=== PATIENT | female | born 1955 | race Caucasian/White ===

== ENCOUNTER 2018-11-29 17:45 | Emergency (ER) | payer BC ==
[2018-11-29] MEDS ORDERED: Sodium Chloride 0.9% 1000 ML 1,000 ML IV STA (18:44)
[2018-11-29] MEDS ORDERED: Zofran 4 MG/2 ML VIAL IV ONE (18:45)
[2018-11-29] MEDS ORDERED: Zofran 4 MG/2 ML VIAL ONE (18:59)
[2018-11-29] MEDS ORDERED: Sodium Chloride 0.9% 1000 ML 1,000 ML ONE (18:59)
--- NOTE | 2018-11-29 19:09 | ERPHSYRPT ---
- History of Present Illness Time Seen by Provider: 11/29/18 19:05 Historian: patient, family Exam Limitations: no limitations Patient Subjective Stated Complaint: PT states "I have had body aches, chills, nausea, diarrhea and just felt like crap for two to three days." Triage Nursing Assessment: Pt alert and oriented X 3, skin pwd Pt ambulates with an upright steady gait, able to speak in clear full sentences. pt in no apprent respriatory distres.. Physician History: 63 y/o white female presents with 2 day h/o body aches, chills, n/v/d. denies cp and denies soa. pt has not been eating or drinking well. no other individuals with similar sx. no new meds. Timing/Duration: day(s) (2) Activities at Onset: none Quality: aching Abdominal Pain Onset Location: generalized abdomen Pain Radiation: no radiation Severity of Pain-Max: mild Severity of Pain-Current: mild Modifying Factors: Improves With: vomiting Associated Symptoms: diarrhea, fever/chills, loss of appetite, nausea, vomiting , weakness Previous symptoms: no prior history Allergies/Adverse Reactions: No Known Drug Allergies Allergy (Unverified 11/29/18 18:02) Home Medications: Levothyroxine Sodium 150 Mcg [Synthroid 150 Mcg] 150 mcg PO DAILY 11/29/18 [History] Hx Tetanus, Diphtheria Vaccination/Date Given: No Hx Influenza Vaccination/Date Given: No Hx Pneumococcal Vaccination/Date Given: No Immunizations Up to Date: Yes - Review of Systems Constitutional: Chills, Weakness Eyes: No Symptoms Ears, Nose, & Throat: No Symptoms Respiratory: No Symptoms Cardiac: No Symptoms Abdominal/Gastrointestinal: Abdominal Pain, Nausea, Vomiting, Diarrhea Genitourinary Symptoms: No Symptoms Musculoskeletal: Arthralgias, Myalgias Skin: No Symptoms Neurological: No Symptoms Psychological: No Symptoms Endocrine: No Symptoms Hematologic/Lymphatic: No Symptoms Immunological/Allergic: No Symptoms All Other Systems: Reviewed and Negative - Past Medical History Pertinent Past Medical History: Yes Neurological History: No Pertinent History ENT History: No Pertinent History Cardiac History: No Pertinent History Respiratory History: No Pertinent History Endocrine Medical History: Hypothyroidism Musculoskeletal History: No Pertinent History GI Medical History: No Pertinent History History: No Pertinent History Psycho-Social History: Anxiety, Depression Female Reproductive Disorders: No Pertinent History - Past Surgical History Past Surgical History: Yes Neuro Surgical History: No Pertinent History Cardiac: No Pertinent History Respiratory: No Pertinent History Gastrointestinal: No Pertinent History Genitourinary: No Pertinent History Musculoskeletal: No Pertinent History Female Surgical History: No Pertinent History Other Surgical History: gastric bypass. nathaniel - Social History Smoking Status: Never smoker Exposure to second hand smoke: No Drug Use: none Patient Lives Alone: No - Female History Hx Now: No - Nursing Vital Signs Nursing Vital Signs: Initial Vital Signs Temperature 98.9 F 11/29/18 17:57 Pulse Rate 98 H 11/29/18 17:57 Respiratory Rate 22 11/29/18 17:57 Blood Pressure 123/82 11/29/18 17:57 O2 Sat by Pulse Oximetry 95 11/29/18 17:57 Pain Scale Pain Intensity [Anterior/ 2 Posterior Generalized] Pain Intensity 2 - Physical Exam General Appearance: mild distress, alert, anxiety Eye Exam: PERRL/EOMI Ears, Nose, Throat Exam: normal ENT inspection, moist mucous membranes Neck Exam: normal inspection, non-tender, supple, full range of motion Respiratory Exam: normal breath sounds, lungs clear, airway intact, No chest tenderness, No respiratory distress, No accessory muscle use, No rhonchi, No wheezing, No stridor Cardiovascular Exam: regular rate/rhythm, normal heart sounds Gastrointestinal/Abdomen Exam: soft, normal bowel sounds, No tenderness, No guarding, No rebound Rectal Exam: deferred Back Exam: normal inspection, normal range of motion, No CVA tenderness, No vertebral tenderness Extremity Exam: normal inspection, normal range of motion, pelvis stable Neurologic Exam: alert, oriented x 3, cooperative, refractory repairer II-XII nml as tested, normal mood/affect Skin Exam: normal color, warm, dry Lymphatic Exam: No adenopathy SpO2 Interpretation: normal SpO2: 95 O2 Delivery: Room Air - Course Nursing assessment & vital signs reviewed: Yes Ordered Tests: Active Orders 24 hr Category Date Time Status AMYLASE Stat Lab 11/29/18 18:50 Completed CBC W DIFF Stat Lab 11/29/18 18:50 Completed CMP Stat Lab 11/29/18 18:50 Completed CULTURE,URINE Stat Lab 11/29/18 19:41 Received LIPASE Stat Lab 11/29/18 18:50 Completed Lactic Acid Stat Lab 11/29/18 19:20 Completed T4 (Thyroxine) Stat Lab 11/29/18 18:30 Completed TSH [TSH, 3RD Generation] Stat Lab 11/29/18 18:30 Completed UA W/RFX UR CULTURE Stat Lab 11/29/18 19:41 Completed Medication Summary Discontinued Medications Generic Name Dose Route Start Last Admin Trade Name Robertq PRN Reason Stop Dose Admin Sodium Chloride 1,000 mls @ 999 mls/hr 11/29/18 18:44 11/29/18 19:05 Sodium Chloride 0.9% 1000 Ml IV 11/29/18 19:44 999 mls/hr .Q1H1M STA Administration Sodium Chloride Confirm 11/29/18 18:59 Sodium Chloride 0.9% 1000 Ml Administered 11/29/18 19:00 Dose 1,000 mls @ ud .ROUTE .STK-MED ONE Ondansetron HCl 4 mg 11/29/18 18:45 11/29/18 19:05 Zofran 4 Mg/2 Ml Vial IV 11/29/18 18:46 4 mg STAT ONE Administration Ondansetron HCl Confirm 11/29/18 18:59 Zofran 4 Mg/2 Ml Vial Administered 11/29/18 19:00 Dose 4 mg .ROUTE .STK-MED ONE Lab/Rad Data: Laboratory Result Diagrams 11/29/18 18:50 11/29/18 18:50 Laboratory Results 11/29/18 11/29/18 11/29/18 Range/Units 19:41 19:20 19:20 WBC (4.0-10.5) K/mm3 RBC (4.1-5.4) M/mm3 Hgb (12.0-16.0) gm/dl Hct (35-47) % MCV (78-100) fl MCH (26-32) pg MCHC (32-36) g/dl RDW (11.5-14.0) % Plt Count (150-450) K/mm3 MPV (6-9.5) fl Gran % (36.0-66.0) % Eos # (Auto) (0-0.5) Absolute Lymphs (auto) (1.0-4.6) Absolute Monos (auto) (0.0-1.3) Lymphocytes % (24.0-44.0) % Monocytes % (0.0-12.0) % Eosinophils % (0.00-5.0) % Basophils % (0.0-0.4) % Absolute Granulocytes (1.4-6.9) Basophils # (0-0.4) Sodium (137-145) mmol/L Potassium (3.5-5.1) mmol/L Chloride (98-107) mmol/L Carbon Dioxide (22-30) mmol/L Anion Gap (5-15) MEQ/L BUN (7-17) mg/dL Creatinine (0.52-1.04) mg/dL Estimated GFR ML/MIN Glucose (74-106) mg/dL Lactic Acid 0.9 (0.4-2.0) Calcium (8.4-10.2) mg/dL Total Bilirubin (0.2-1.3) mg/dL AST (14-36) U/L ALT (0-35) U/L Alkaline Phosphatase (38-126) U/L Serum Total Protein (6.3-8.2) g/dL Albumin (3.5-5.0) g/dL Amylase (30-110) U/L Lipase (23-300) U/L Thyroxine (T4) (5.53-10.96) ug/dL TSH 3rd Generation (0.47-4.68) mIU/L Urine Color [place]NIE (YELLOW) Urine Appearance CLOUDY (CLEAR) Urine pH 5.0 (5-6) Ur Specific [place] 1.020 (1.005-1.025) Urine Protein 100 (Negative) Urine Ketones TRACE (NEGATIVE) Urine Blood SMALL (0-5) Andriy/ul Urine Nitrite NEGATIVE (NEGATIVE) Urine Bilirubin NEGATIVE (NEGATIVE) Urine Urobilinogen NEGATIVE (0-1) mg/dL Ur Leukocyte Esterase LARGE (NEGATIVE) Urine WBC (Auto) >100 (0-5) /HPF Urine RBC (Auto) 16-25 (0-2) /HPF U Epithel Cells (Auto) RARE (FEW) /HPF Urine Bacteria (Auto) FEW (NEGATIVE) /HPF Urine Mucus (Auto) SLIGHT (NEGATIVE) /HPF Urine Culture Reflexed YES (NO) Urine Glucose NEGATIVE (NEGATIVE) mg/dL Influenza Type A Ag NEGATIVE (NEGATIVE) Influenza Type B Ag NEGATIVE (NEGATIVE) RSV (PCR) NEGATIVE (Negative) 11/29/18 11/29/18 11/29/18 Range/Units 18:50 18:50 18:30 WBC 5.7 (4.0-10.5) K/mm3 RBC 3.87 L (4.1-5.4) M/mm3 Hgb 11.3 L (12.0-16.0) gm/dl Hct 37.5 (35-47) % MCV 96.9 (78-100) fl MCH 29.1 (26-32) pg MCHC 30.1 L (32-36) g/dl RDW 14.6 H (11.5-14.0) % Plt Count 232 (150-450) K/mm3 MPV 10.2 H (6-9.5) fl Gran % 69.5 H (36.0-66.0) % Eos # (Auto) 0 (0-0.5) Absolute Lymphs (auto) 1.18 (1.0-4.6) Absolute Monos (auto) 0.55 (0.0-1.3) Lymphocytes % 20.7 L (24.0-44.0) % Monocytes % 9.6 (0.0-12.0) % Eosinophils % 0.0 (0.00-5.0) % Basophils % 0.2 (0.0-0.4) % Absolute Granulocytes 3.96 (1.4-6.9) Basophils # 0.01 (0-0.4) Sodium 136 L (137-145) mmol/L Potassium 3.2 L (3.5-5.1) mmol/L Chloride 105 (98-107) mmol/L Carbon Dioxide 22 (22-30) mmol/L Anion Gap 12.3 (5-15) MEQ/L BUN 14 (7-17) mg/dL Creatinine 0.86 (0.52-1.04) mg/dL Estimated GFR > 60.0 ML/MIN Glucose 101 (74-106) mg/dL Lactic Acid (0.4-2.0) Calcium 8.5 (8.4-10.2) mg/dL Total Bilirubin 0.80 (0.2-1.3) mg/dL AST 23 (14-36) U/L ALT 18 (0-35) U/L Alkaline Phosphatase 126 (38-126) U/L Serum Total Protein 7.1 (6.3-8.2) g/dL Albumin 3.7 (3.5-5.0) g/dL Amylase 64 (30-110) U/L Lipase 97 (23-300) U/L Thyroxine (T4) 8.34 (5.53-10.96) ug/dL TSH 3rd Generation (0.47-4.68) mIU/L Urine Color (YELLOW) Urine Appearance (CLEAR) Urine pH (5-6) Ur Specific [place] (1.005-1.025) Urine Protein (Negative) Urine Ketones (NEGATIVE) Urine Blood (0-5) Andriy/ul Urine Nitrite (NEGATIVE) Urine Bilirubin (NEGATIVE) Urine Urobilinogen (0-1) mg/dL Ur Leukocyte Esterase (NEGATIVE) Urine WBC (Auto) (0-5) /HPF Urine RBC (Auto) (0-2) /HPF U Epithel Cells (Auto) (FEW) /HPF Urine Bacteria (Auto) (NEGATIVE) /HPF Urine Mucus (Auto) (NEGATIVE) /HPF Urine Culture Reflexed (NO) Urine Glucose (NEGATIVE) mg/dL Influenza Type A Ag (NEGATIVE) Influenza Type B Ag (NEGATIVE) RSV (PCR) (Negative) 11/29/18 Range/Units 18:30 WBC (4.0-10.5) K/mm3 RBC (4.1-5.4) M/mm3 Hgb (12.0-16.0) gm/dl Hct (35-47) % MCV (78-100) fl MCH (26-32) pg MCHC (32-36) g/dl RDW (11.5-14.0) % Plt Count (150-450) K/mm3 MPV (6-9.5) fl Gran % (36.0-66.0) % Eos # (Auto) (0-0.5) Absolute Lymphs (auto) (1.0-4.6) Absolute Monos (auto) (0.0-1.3) Lymphocytes % (24.0-44.0) % Monocytes % (0.0-12.0) % Eosinophils % (0.00-5.0) % Basophils % (0.0-0.4) % Absolute Granulocytes (1.4-6.9) Basophils # (0-0.4) Sodium (137-145) mmol/L Potassium (3.5-5.1) mmol/L Chloride (98-107) mmol/L Carbon Dioxide (22-30) mmol/L Anion Gap (5-15) MEQ/L BUN (7-17) mg/dL Creatinine (0.52-1.04) mg/dL Estimated GFR ML/MIN Glucose (74-106) mg/dL Lactic Acid (0.4-2.0) Calcium (8.4-10.2) mg/dL Total Bilirubin (0.2-1.3) mg/dL AST (14-36) U/L ALT (0-35) U/L Alkaline Phosphatase (38-126) U/L Serum Total Protein (6.3-8.2) g/dL Albumin (3.5-5.0) g/dL Amylase (30-110) U/L Lipase (23-300) U/L Thyroxine (T4) (5.53-10.96) ug/dL TSH 3rd Generation 1.390 (0.47-4.68) mIU/L Urine Color (YELLOW) Urine Appearance (CLEAR) Urine pH (5-6) Ur Specific [place] (1.005-1.025) Urine Protein (Negative) Urine Ketones (NEGATIVE) Urine Blood (0-5) Andriy/ul Urine Nitrite (NEGATIVE) Urine Bilirubin (NEGATIVE) Urine Urobilinogen (0-1) mg/dL Ur Leukocyte Esterase (NEGATIVE) Urine WBC (Auto) (0-5) /HPF Urine RBC (Auto) (0-2) /HPF U Epithel Cells (Auto) (FEW) /HPF Urine Bacteria (Auto) (NEGATIVE) /HPF Urine Mucus (Auto) (NEGATIVE) /HPF Urine Culture Reflexed (NO) Urine Glucose (NEGATIVE) mg/dL Influenza Type A Ag (NEGATIVE) Influenza Type B Ag (NEGATIVE) RSV (PCR) (Negative) - Progress Progress: improved, re-examined Counseled pt/family regarding: lab results, diagnosis, need for follow-up - Departure Departure Disposition: Home Clinical Impression: UTI (urinary tract infection), Dehydration Condition: Stable Critical Care Time: No Referrals: ZACHARY JUAREZ [Primary Care Provider] - Additional Instructions: drink plenty of fluids. take medications as prescribed. follow up with primary doctor for persistent symptoms Prescriptions: Ondansetron ODT 4 MG [Zofran Odt 4 mg] 4 mg PO Q6H PRN PRN #10 tab.rapdis PRN Reason: Vomiting Ciprofloxacin [Cipro 500 MG] 500 mg PO BID #20 tablet
[2018-11-29 19:15] LABS: BASOPHIL % 0.2 % (0.0-0.4); Basophil (Absolute #) 0.01 (0-0.4); Eosinophil (Absolute #) 0 (0-0.5); Granulocyte Absolute (ANC) 3.96 (1.4-6.9); Granulocytes % 69.5 % (36.0-66.0); Hematocrit 37.5 % (35-47); Hemoglobin 11.3 gm/dl (12.0-16.0); Lymphocyte (Absolute #) 1.18 (1.0-4.6); Lymphocytes % 20.7 % (24.0-44.0); Mean Cell Volume 96.9 fl (78-100); Mean Corpuscular Hgb Concent. 30.1 g/dl (32-36); Mean Platelet Volume 10.2 fl (6-9.5); Monocyte (Absolute #) 0.55 (0.0-1.3); Monocytes % 9.6 % (0.0-12.0); Platelet Count 232 K/mm3 (150-450); Red Blood Count 3.87 M/mm3 (4.1-5.4); Red Cell Distribution Width 14.6 % (11.5-14.0); White Blood Count 5.7 K/mm3 (4.0-10.5)
[2018-11-29 19:23] LABS: Mean Corpuscular Hemoglobin 29.1 pg (26-32)
[2018-11-29 19:26] LABS: ALBUMIN 3.7 g/dL (3.5-5.0); ALKALINE PHOSPHATASE 126 U/L (38-126); AMYLASE 64 U/L (30-110); ANION GAP 12.3 MEQ/L (5-15); BLOOD UREA NITROGEN 14 mg/dL (7-17); CHLORIDE 105 mmol/L (98-107); Calcium 8.5 mg/dL (8.4-10.2); Carbon Dioxide 22 mmol/L (22-30); Creatinine 1 0.86 mg/dL (0.52-1.04); Glucose 101 mg/dL (74-106); LIPASE 97 U/L (23-300); Potassium 3.2 mmol/L (3.5-5.1); SGOT/AST 23 U/L (14-36); SGPT/ALT 18 U/L (0-35); SODIUM 136 mmol/L (137-145); Total Protein 7.1 g/dL (6.3-8.2)
[2018-11-29 19:58] LABS: Appearance CLOUDY (CLEAR); Bacteria FEW /HPF (NEGATIVE); Bilirubin NEGATIVE (NEGATIVE); Blood SMALL Ery/ul (0-5); Epithelial Cells RARE /HPF (FEW); Glucose NEGATIVE (NEGATIVE); Ketones TRACE (NEGATIVE); Leukocyte Esterase LARGE (NEGATIVE); Mucus SLIGHT /HPF (NEGATIVE); Nitrite NEGATIVE (NEGATIVE); Protein,Urine Dip 100 (Negative); Urobilinogen NEGATIVE mg/dL (0-1); WBC >100 /HPF (0-5)
[2018-11-29 20:23] LABS: INFLUENZA A NEGATIVE (NEGATIVE); INFLUENZA B NEGATIVE (NEGATIVE); RESPIRATORY SYNCTIAL VIRUS NEGATIVE (Negative)
[2018-11-29] MEDS ORDERED: ROCEPHIN 1 Gm-D5w 50 ml Bag** 1 G/50 ML IVPB IV STA (20:41)
[2018-11-29] MEDS ORDERED: Sodium Chloride 0.9% 500 ML 500 ML IV ONE ×2 (20:42→20:54)
[2018-11-29] MEDS ORDERED: Cipro 500 MG PO ONE (20:42)
[2018-11-29] MEDS ORDERED: Cipro 500 MG ONE (20:54)
[2018-11-29] MEDS ORDERED: ROCEPHIN 1 Gm-D5w 50 ml Bag** 1 G/50 ML IVPB IV ONE (20:54)
[2018-11-29] MEDS ORDERED: Klor Con 10 MEQ PO ONE ×2 (20:58→21:17)
[2018-11-29 22:03] VITALS: BP 145/82; PULSE 86; O2SAT 99
== END 2018-11-29 22:04 | disposition home or self-care (01) ==
LOC: ED 17:45
DX: N39.0 Urinary tract infection, site not specified (principal); E86.0 Dehydration; F41.9 Anxiety disorder, unspecified; F32.9 Major depressive disorder, single episode, unspecified; Z79.899 Other long term (current) drug therapy
CPT/HCPCS: 36415; 80053; 81001; 82150; 83605; 83690; 84436; 84443; 84481; 85025; 87077; 87086; 87186; 87631; 96360; 96361; 96365; 96374; 99284; J0696; J2405; A9270-GY

== ENCOUNTER 2019-05-08 21:54 | Emergency (ER) | payer BC ==
[2019-05-08] MEDS ORDERED: Sodium Chloride 0.9% 1000 ML 1,000 ML IV STA (22:26)
[2019-05-08] MEDS ORDERED: Zofran 4 MG/2 ML VIAL IV ONE (22:26)
--- NOTE | 2019-05-08 22:26 | ERPHSYRPT ---
- History of Present Illness Time Seen by Provider: 05/08/19 22:10 Historian: patient Exam Limitations: no limitations Patient Subjective Stated Complaint: Nausea Triage Nursing Assessment: Patient ambulated back to ED and transferred to bed per self. Patient A+O X3. Patient's skin pink, warm and dry. Patient complains of nausea since 1300. Patient states she has had diarrhea several times today. Patient denies pain or discomfort. Patient denies vomiting. Abdomen soft and round with BS X 4. Physician History: Patient has had nine hours of nausea with 8 episodes of diarrhea today that began in the morning of 05/08/2019. Patient has had no recent travel history, no recent antibiotic usage, and no recent hospitalizations. Timing/Duration: hour(s) (9) Activities at Onset: none Quality: aching Abdominal Pain Onset Location: other (no localized abdominal pain) Pain Radiation: no radiation Severity of Pain-Max: none Severity of Pain-Current: none Modifying Factors: Worsens With: breathing, coughing, defecating, eating, movement, palpation, rest, urinating, vomiting Associated Symptoms: diarrhea, fatigue, loss of appetite, nausea, weakness, No back, No chest pain, No diaphoresis, No fever/chills, No headache, No heartburn , No neck pain, No rash, No shortness of breath, No syncope, No vomiting Previous symptoms: same symptoms as today (experienced 5 months ago similar type symptoms), other (no history of hospitalization, travel history, suspicious food consumption or recent antibiotics) Allergies/Adverse Reactions: No Known Drug Allergies Allergy (Verified 05/08/19 22:00) Home Medications: Levothyroxine Sodium 150 Mcg [Synthroid 150 Mcg] 150 mcg PO DAILY 11/29/18 [History] Bupropion HCl 150 mg Sr [Wellbutrin SR 150 MG] 1 tab PO BID 05/08/19 [ History] Hx Tetanus, Diphtheria Vaccination/Date Given: No Hx Influenza Vaccination/Date Given: No Hx Pneumococcal Vaccination/Date Given: No Immunizations Up to Date: Yes - Review of Systems Constitutional: Fatigue, No Fever, No Chills Eyes: No Symptoms, No Eye Pain, No Vision Changes Ears, Nose, & Throat: No Nose Pain, No Throat Pain, No Throat Swelling, No Hoarse Respiratory: No Cough, No Dyspnea Cardiac: No Chest Pain, No Edema, No Syncope Abdominal/Gastrointestinal: Nausea, Diarrhea, No Abdominal Pain, No Vomiting, No Hematemesis, No Hematochezia, No Melena Genitourinary Symptoms: No Dysuria, No Hematuria, No Flank Pain Musculoskeletal: No Back Pain, No Neck Pain Skin: No Rash Neurological: No Dizziness, No Focal Weakness, No Headache, No Parasthesia, No Sensory Changes, No Tremors Psychological: No Anxiety Endocrine: No Polyuria, No Excessive Sweating Hematologic/Lymphatic: No Easy Bleeding, No Easy Bruising All Other Systems: Reviewed and Negative - Past Medical History Pertinent Past Medical History: Yes Neurological History: No Pertinent History ENT History: No Pertinent History Cardiac History: No Pertinent History Respiratory History: No Pertinent History Endocrine Medical History: Hypothyroidism Musculoskeletal History: No Pertinent History GI Medical History: No Pertinent History History: No Pertinent History Psycho-Social History: Anxiety, Depression Female Reproductive Disorders: No Pertinent History - Past Surgical History Past Surgical History: Yes Neuro Surgical History: No Pertinent History Cardiac: No Pertinent History Respiratory: No Pertinent History Gastrointestinal: Cholecystectomy Genitourinary: No Pertinent History Musculoskeletal: No Pertinent History Female Surgical History: No Pertinent History Other Surgical History: gastric bypass. nathaniel - Social History Smoking Status: Never smoker Exposure to second hand smoke: No Drug Use: none Patient Lives Alone: No - Female History Hx Last Menstrual Period: Menopausal Hx Now: Yes - Nursing Vital Signs Nursing Vital Signs: Initial Vital Signs Temperature 97.9 F 05/08/19 22:04 Pulse Rate 104 H 05/08/19 22:04 Respiratory Rate 18 05/08/19 22:04 Blood Pressure 121/80 05/08/19 22:04 O2 Sat by Pulse Oximetry 95 05/08/19 22:04 Pain Scale Pain Intensity 9 - Physical Exam General Appearance: no apparent distress, alert Eye Exam: PERRL/EOMI, eyes nml inspection, No scleral icterus Ears, Nose, Throat Exam: normal ENT inspection, pharynx normal, moist mucous membranes Neck Exam: normal inspection, non-tender, supple, full range of motion, No meningismus, No mass, No Brudzinski, No Kernig's, No lymphadenopathy Respiratory Exam: normal breath sounds, lungs clear, airway intact, No respiratory distress, No accessory muscle use, No crackles/rales, No rhonchi, No wheezing Cardiovascular Exam: regular rate/rhythm, normal heart sounds Gastrointestinal/Abdomen Exam: soft, No tenderness, No mass Back Exam: normal inspection, normal range of motion, No CVA tenderness, No vertebral tenderness Extremity Exam: normal inspection, normal range of motion, pelvis stable Neurologic Exam: alert, oriented x 3, cooperative, forensic social worker II-XII nml as tested, normal mood/affect, nml cerebellar function, sensation nml, No motor deficits Skin Exam: normal color, warm, dry, No petechiae, No jaundice, No cyanosis Lymphatic Exam: No adenopathy SpO2 Interpretation: normal SpO2: 95 O2 Delivery: Room Air Ordered Tests: Active Orders 24 hr Category Date Time Status IV Insertion STAT Care 05/08/19 22:26 Active AMYLASE Stat Lab 05/08/19 22:53 Completed CBC W DIFF Stat Lab 05/08/19 22:53 Completed CMP Stat Lab 05/08/19 22:53 Completed CULTURE,URINE Stat Lab 05/08/19 23:15 Received LIPASE Stat Lab 05/08/19 22:53 Completed Lactic Acid Stat Lab 05/08/19 22:26 Completed TROPONIN Q3H Lab 05/08/19 22:53 Completed TROPONIN Q3H Lab 05/09/19 01:30 Ordered TROPONIN Q3H Lab 05/09/19 04:30 Ordered TROPONIN Q3H Lab 05/09/19 07:30 Ordered TROPONIN Q3H Lab 05/09/19 10:30 Ordered UA W/RFX UR CULTURE Stat Lab 05/08/19 23:15 Completed Medication Summary Discontinued Medications Generic Name Dose Route Start Last Admin Trade Name Freq PRN Reason Stop Dose Admin Sodium Chloride 1,000 mls @ 999 mls/hr 05/08/19 22:26 05/08/19 23:56 Sodium Chloride 0.9% 1000 Ml IV 05/08/19 23:26 Infused .Q1H1M STA Infusion Sodium Chloride Confirm 05/08/19 22:38 Sodium Chloride 0.9% 1000 Ml Administered 05/08/19 22:39 Dose 1,000 mls @ ud .ROUTE .STK-MED ONE Ondansetron HCl 4 mg 05/08/19 22:26 05/08/19 22:41 Zofran 4 Mg/2 Ml Vial IV 05/08/19 22:27 4 mg STAT ONE Administration Ondansetron HCl Confirm 05/08/19 22:38 Zofran 4 Mg/2 Ml Vial Administered 05/08/19 22:39 Dose 4 mg .ROUTE .STK-MED ONE Lab/Rad Data: Laboratory Result Diagrams 05/08/19 22:53 05/08/19 22:53 Laboratory Results 05/08/19 05/08/19 05/08/19 Range/Units 23:15 22:53 22:53 WBC (4.0-10.5) K/mm3 RBC (4.1-5.4) M/mm3 Hgb (12.0-16.0) gm/dl Hct (35-47) % MCV (78-100) fl MCH (26-32) pg MCHC (32-36) g/dl RDW (11.5-14.0) % Plt Count (150-450) K/mm3 MPV (6-9.5) fl Gran % (36.0-66.0) % Eos # (Auto) (0-0.5) Absolute Lymphs (auto) (1.0-4.6) Absolute Monos (auto) (0.0-1.3) Lymphocytes % (24.0-44.0) % Monocytes % (0.0-12.0) % Eosinophils % (0.00-5.0) % Basophils % (0.0-0.4) % Absolute Granulocytes (1.4-6.9) Basophils # (0-0.4) Sodium 144 (137-145) mmol/L Potassium 3.8 (3.5-5.1) mmol/L Chloride 112 H (98-107) mmol/L Carbon Dioxide 22 (22-30) mmol/L Anion Gap 13.2 (5-15) MEQ/L BUN 15 (7-17) mg/dL Creatinine 0.84 (0.52-1.04) mg/dL Estimated GFR > 60.0 ML/MIN Glucose 117 H (74-106) mg/dL Lactic Acid (0.4-2.0) Calcium 8.6 (8.4-10.2) mg/dL Total Bilirubin 0.40 (0.2-1.3) mg/dL AST 25 (14-36) U/L ALT 16 (0-35) U/L Alkaline Phosphatase 133 H (38-126) U/L Troponin I < 0.012 (0.000-0.034) ng/mL Serum Total Protein 7.1 (6.3-8.2) g/dL Albumin 3.9 (3.5-5.0) g/dL Amylase 58 (30-110) U/L Lipase 87 (23-300) U/L Urine Color YELLOW (YELLOW) Urine Appearance CLEAR (CLEAR) Urine pH 5.0 (5-6) Ur Specific [place] 1.018 (1.005-1.025) Urine Protein NEGATIVE (Negative) Urine Ketones NEGATIVE (NEGATIVE) Urine Blood SMALL (0-5) Andriy/ul Urine Nitrite NEGATIVE (NEGATIVE) Urine Bilirubin NEGATIVE (NEGATIVE) Urine Urobilinogen NEGATIVE (0-1) mg/dL Ur Leukocyte Esterase TRACE (NEGATIVE) Urine WBC (Auto) 3-5 (0-5) /HPF Urine RBC (Auto) 0-2 (0-2) /HPF U Epithel Cells (Auto) RARE (FEW) /HPF Urine Bacteria (Auto) NONE (NEGATIVE) /HPF Urine Mucus (Auto) SLIGHT (NEGATIVE) /HPF Urine Culture Reflexed YES (NO) Urine Glucose NEGATIVE (NEGATIVE) mg/dL 05/08/19 05/08/19 Range/Units 22:53 22:26 WBC 9.4 (4.0-10.5) K/mm3 RBC 3.68 L (4.1-5.4) M/mm3 Hgb 11.4 L (12.0-16.0) gm/dl Hct 37.0 (35-47) % MCV 100.5 H (78-100) fl MCH 30.9 (26-32) pg MCHC 30.8 L (32-36) g/dl RDW 14.8 H (11.5-14.0) % Plt Count 271 (150-450) K/mm3 MPV 10.5 H (6-9.5) fl Gran % 75.7 H (36.0-66.0) % Eos # (Auto) 0.18 (0-0.5) Absolute Lymphs (auto) 1.09 (1.0-4.6) Absolute Monos (auto) 0.99 (0.0-1.3) Lymphocytes % 11.7 L (24.0-44.0) % Monocytes % 10.6 (0.0-12.0) % Eosinophils % 1.9 (0.00-5.0) % Basophils % 0.1 (0.0-0.4) % Absolute Granulocytes 7.08 H (1.4-6.9) Basophils # 0.01 (0-0.4) Sodium (137-145) mmol/L Potassium (3.5-5.1) mmol/L Chloride (98-107) mmol/L Carbon Dioxide (22-30) mmol/L Anion Gap (5-15) MEQ/L BUN (7-17) mg/dL Creatinine (0.52-1.04) mg/dL Estimated GFR ML/MIN Glucose (74-106) mg/dL Lactic Acid 0.8 (0.4-2.0) Calcium (8.4-10.2) mg/dL Total Bilirubin (0.2-1.3) mg/dL AST (14-36) U/L ALT (0-35) U/L Alkaline Phosphatase (38-126) U/L Troponin I (0.000-0.034) ng/mL Serum Total Protein (6.3-8.2) g/dL Albumin (3.5-5.0) g/dL Amylase (30-110) U/L Lipase (23-300) U/L Urine Color (YELLOW) Urine Appearance (CLEAR) Urine pH (5-6) Ur Specific [place] (1.005-1.025) Urine Protein (Negative) Urine Ketones (NEGATIVE) Urine Blood (0-5) Andriy/ul Urine Nitrite (NEGATIVE) Urine Bilirubin (NEGATIVE) Urine Urobilinogen (0-1) mg/dL Ur Leukocyte Esterase (NEGATIVE) Urine WBC (Auto) (0-5) /HPF Urine RBC (Auto) (0-2) /HPF U Epithel Cells (Auto) (FEW) /HPF Urine Bacteria (Auto) (NEGATIVE) /HPF Urine Mucus (Auto) (NEGATIVE) /HPF Urine Culture Reflexed (NO) Urine Glucose (NEGATIVE) mg/dL - Progress Progress: improved Progress Note: 05/08/19 23:57 Nausea has resolved. Patient has no localized abdominal pain. Patient has no abdominal pain on repeat examination and no CVA tenderness. Patient has had no diarrhea episodes while in the emergency department. We'll finish IV fluids and discharge the patient home. 05/09/19 00:41 Patient requested and tolerated PO fluids well. Counseled pt/family regarding: lab results, diagnosis, need for follow-up - Departure Departure Disposition: Home Clinical Impression: Nausea Diarrhea Qualifiers: Diarrhea type: unspecified type Qualified Code(s): R19.7 - Diarrhea, unspecified Condition: Good Critical Care Time: No Referrals: ZACHARY JUAREZ [Primary Care Provider] - Follow Up with PCP/3 days Instructions: Diarrhea and Traveler's Diarrhea -- Adult, Nausea -- Adult Additional Instructions: Return immediately back to the emergency department if nausea or diarrhea becomes overwhelming, any worsening diarrhea, any back pain, any fever, any change in urine or urinary symptoms, or any other concerning signs or symptoms that were not present at today's visit return for immediate reevaluation in the emergency department. Prescriptions: Ondansetron ODT 4 MG [Zofran Odt 4 mg] 4 mg PO Q8H PRN PRN #10 tab.rapdis PRN Reason: Nausea Diphenoxylate HCl/Atropine [Lomotil Tablet] 1 each PO TID PRN #10 tablet PRN Reason: Diarrhea
[2019-05-08] MEDS ORDERED: Sodium Chloride 0.9% 1000 ML 1,000 ML ONE (22:38)
[2019-05-08] MEDS ORDERED: Zofran 4 MG/2 ML VIAL ONE (22:38)
[2019-05-08 22:54] LABS: BASOPHIL % 0.1 % (0.0-0.4); Basophil (Absolute #) 0.01 (0-0.4); Eosinophil % 1.9 % (0.00-5.0); Eosinophil (Absolute #) 0.18 (0-0.5); Granulocyte Absolute (ANC) 7.08 (1.4-6.9); Granulocytes % 75.7 % (36.0-66.0); Hemoglobin 11.4 gm/dl (12.0-16.0); Lymphocyte (Absolute #) 1.09 (1.0-4.6); Lymphocytes % 11.7 % (24.0-44.0); Mean Cell Volume 100.5 fl (78-100); Mean Corpuscular Hgb Concent. 30.8 g/dl (32-36); Mean Platelet Volume 10.5 fl (6-9.5); Monocyte (Absolute #) 0.99 (0.0-1.3); Monocytes % 10.6 % (0.0-12.0); Platelet Count 271 K/mm3 (150-450); Red Blood Count 3.68 M/mm3 (4.1-5.4); Red Cell Distribution Width 14.8 % (11.5-14.0); White Blood Count 9.4 K/mm3 (4.0-10.5)
[2019-05-08 22:56] LABS: Mean Corpuscular Hemoglobin 30.9 pg (26-32)
[2019-05-08 23:05] LABS: ALBUMIN 3.9 g/dL (3.5-5.0); ALKALINE PHOSPHATASE 133 U/L (38-126); AMYLASE 58 U/L (30-110); ANION GAP 13.2 MEQ/L (5-15); BLOOD UREA NITROGEN 15 mg/dL (7-17); CHLORIDE 112 mmol/L (98-107); Calcium 8.6 mg/dL (8.4-10.2); Carbon Dioxide 22 mmol/L (22-30); Creatinine 1 0.84 mg/dL (0.52-1.04); Glucose 117 mg/dL (74-106); LIPASE 87 U/L (23-300); Potassium 3.8 mmol/L (3.5-5.1); SGOT/AST 25 U/L (14-36); SGPT/ALT 16 U/L (0-35); SODIUM 144 mmol/L (137-145); Total Protein 7.1 g/dL (6.3-8.2)
[2019-05-08 23:18] LABS: Appearance CLEAR (CLEAR); Bilirubin NEGATIVE (NEGATIVE); Blood SMALL Ery/ul (0-5); Epithelial Cells RARE /HPF (FEW); Glucose NEGATIVE (NEGATIVE); Ketones NEGATIVE (NEGATIVE); Leukocyte Esterase TRACE (NEGATIVE); Mucus SLIGHT /HPF (NEGATIVE); Nitrite NEGATIVE (NEGATIVE); Protein,Urine Dip NEGATIVE (Negative); RBC 0-2 /HPF (0-2); Specific Gravity 1.018 (1.005-1.025); Urobilinogen NEGATIVE mg/dL (0-1)
[2019-05-09 01:05] VITALS: BP 121/61; PULSE 84; O2SAT 97
== END 2019-05-09 01:30 | disposition home or self-care (01) ==
LOC: ED 21:54
DX: R11.0 Nausea (principal); R19.7 Diarrhea, unspecified
CPT/HCPCS: 36000; 36415; 80053; 81001; 82150; 83605; 83690; 84484; 85025; 87077; 87086; 87186; 96360; 96374; 99284; J2405

== ENCOUNTER 2019-09-12 10:31 | Emergency (ER) | payer BC ==
--- NOTE | 2019-09-12 10:38 | ERPHSYRPT ---
- History of Present Illness Time Seen by Provider: 09/12/19 10:38 Source: patient Exam Limitations: no limitations Patient Subjective Stated Complaint: the patient is a 64-year-old female with a past medical history significant for a gastric bypass surgery, specifically a Roxanna-en-Y reportedly 10-15 years ago and has had subsequent loose stool since that time presents with a chief complaint diarrhea. Onset reportedly was 5-7 days ago. She nor 7 multiple episodes of "watery" diarrhea since that time. She denies having bloody stools and/or some intermittent abdominal cramping and decreased appetite since that time. She denies fever, chills, nausea, vomiting. She was seen by her primary care provider last week and reportedly was tested for strep and was negative and when she called her primary care provider today, and she was instructed to come to the emergency department for further evaluation and management. The patient denies recent travel outside of the country, recent sick contacts, recent antibiotic use. She informed the nurse that she had tested positive for C. difficile back in May 2019 however when I checked the patient's EMR she actually tested negative for C. difficile. I then asked the patient about this testing and she corrected herself and told me that she reportedly had Escherichia coli present in her fluid or whatever and a prescriptionstool. Physician History: The patient is a 64-year-old female with a past medical history significant for a gastric bypass surgery, specifically a Roxanna-en-Y reportedly 10-15 years ago and has had subsequent loose stool since that time presents with a chief complaint diarrhea. Onset reportedly was 5-7 days ago. She nor 7 multiple episodes of "watery" diarrhea since that time. She denies having bloody stools and/or some intermittent abdominal cramping and decreased appetite since that time. She denies fever, chills, nausea, vomiting. She was seen by her primary care provider last week and reportedly was tested for strep and was negative and when she called her primary care provider today, and she was instructed to come to the emergency department for further evaluation and management. The patient denies recent travel outside of the country, recent sick contacts, recent antibiotic use. She informed the nurse that she had tested positive for C. difficile back in May 2019 however when I checked the patient's EMR she actually tested negative for C. difficile. I then asked the patient about this testing and she corrected herself and told me that she reportedly had Escherichia coli present in her stool. Timing/Duration: week(s) (1) Associated Symptoms: abdominal pain, loss of appetite, other (Diarrhea), No nausea, No vomiting, No diaphoresis, No cough Allergies/Adverse Reactions: No Known Drug Allergies Allergy (Verified 05/08/19 22:00) Home Medications: Levothyroxine Sodium 150 Mcg [Synthroid 150 Mcg] 150 mcg PO DAILY 11/29/18 [History] Bupropion HCl 150 mg Sr [Wellbutrin SR 150 MG] 1 tab PO BID 05/08/19 [ History] Hx Tetanus, Diphtheria Vaccination/Date Given: No Hx Influenza Vaccination/Date Given: No Hx Pneumococcal Vaccination/Date Given: No - Review of Systems Constitutional: Weakness, Weight Loss, No Fever, No Chills Eyes: No Symptoms Respiratory: No Cough, No Cyanosis, No Dyspnea Cardiac: No Chest Pain, No Edema, No Palpitations Abdominal/Gastrointestinal: Abdominal Pain, Diarrhea, Appetite Changes, No Nausea, No Vomiting, No Constipation, No Hematemesis, No Hematochezia, No Melena Genitourinary Symptoms: Incontinence, No Dysuria, No Frequency, No Hematuria, No Hesitancy, No Vaginal Bleeding, No Vaginal Discharge Musculoskeletal: No Symptoms Skin: No Symptoms Neurological: No Symptoms Psychological: No Symptoms Hematologic/Lymphatic: No Symptoms All Other Systems: Reviewed and Negative - Past Medical History Pertinent Past Medical History: Yes Neurological History: No Pertinent History ENT History: No Pertinent History Cardiac History: No Pertinent History Respiratory History: No Pertinent History Endocrine Medical History: Hypothyroidism Musculoskeletal History: No Pertinent History GI Medical History: No Pertinent History History: No Pertinent History Psycho-Social History: Anxiety, Depression Female Reproductive Disorders: No Pertinent History - Past Surgical History Past Surgical History: Yes Neuro Surgical History: No Pertinent History Cardiac: No Pertinent History Respiratory: No Pertinent History Gastrointestinal: Cholecystectomy Genitourinary: No Pertinent History Musculoskeletal: No Pertinent History Female Surgical History: No Pertinent History Other Surgical History: gastric bypass. nathaniel - Social History Smoking Status: Never smoker Exposure to second hand smoke: No Drug Use: none Patient Lives Alone: No - Nursing Vital Signs Nursing Vital Signs: Initial Vital Signs Temperature 92 F 09/12/19 10:39 Pulse Rate 93 H 01/20/20 10:39 Respiratory Rate 16 09/12/19 10:39 Blood Pressure 148/85 09/12/19 10:39 O2 Sat by Pulse Oximetry 97 09/12/19 10:39 Pain Scale Pain Intensity 3 - Physical Exam General Appearance: no apparent distress, alert Eye Exam: PERRL/EOMI, EOM palsy/anisocoria Ears, Nose, Throat Exam: normal ENT inspection, pharynx normal, moist mucous membranes, No pharyngeal erythema, No tonsillar exudate Neck Exam: normal inspection, supple, No non-tender Respiratory Exam: normal breath sounds, lungs clear, airway intact, No chest tenderness, No respiratory distress, No diminished breath sounds, No accessory muscle use Cardiovascular Exam: regular rate/rhythm, normal heart sounds, normal peripheral pulses, capillary refill <2 sec, No murmur, No friction rub, No gallop Gastrointestinal/Abdomen Exam: soft, normal bowel sounds, hepatomegaly, other ( Well-healed surgical wound noted), No tenderness, No distention, No mass, No guarding Pelvic Exam: not done Rectal Exam: deferred Extremity Exam: normal inspection Neurologic Exam: alert, oriented x 3, cooperative Skin Exam: normal color, warm, dry, No rash SpO2 Interpretation: normal O2 Delivery: Room Air - Course Nursing assessment & vital signs reviewed: Yes Ordered Tests: Active Orders 24 hr Category Date Time Status IV Insertion STAT Care 09/12/19 10:49 Active BMP Stat Lab 09/12/19 11:27 Completed CBC W DIFF Stat Lab 09/12/19 11:27 Completed Manual Differential NC Stat Lab 09/12/19 11:27 Completed Medication Summary Discontinued Medications Generic Name Dose Route Start Last Admin Trade Name Leisa PRN Reason Stop Dose Admin Dicyclomine HCl 20 mg 09/12/19 13:00 09/12/19 11:34 Bentyl 20 Mg PO 10/12/19 12:59 20 mg QID FAUSTINO Administration Dicyclomine HCl Confirm 09/12/19 11:31 Bentyl 20 Mg Administered 09/12/19 11:32 Dose 20 mg .ROUTE .STK-MED ONE Sodium Chloride 1,000 mls @ 999 mls/hr 09/12/19 10:49 09/12/19 12:53 Sodium Chloride 0.9% 1000 Ml IV 09/12/19 11:49 Infused .Q1H1M STA Infusion Sodium Chloride Confirm 09/12/19 11:31 Sodium Chloride 0.9% 1000 Ml Administered 09/12/19 11:32 Dose 1,000 mls @ .ROUTE .[facility] ONE Lab/Rad Data: Laboratory Result Diagrams 09/12/19 11:27 09/12/19 11:27 Laboratory Results 09/12/19 09/12/19 Range/Units 11:27 11:27 WBC 7.0 (4.0-10.5) K/mm3 RBC 4.06 L (4.1-5.4) M/mm3 Hgb 10.9 L (12.0-16.0) gm/dl Hct 35.9 (35-47) % MCV 88.4 (78-100) fl MCH 26.8 (26-32) pg MCHC 30.4 L (32-36) g/dl RDW 15.0 H (11.5-14.0) % Plt Count 323 (150-450) K/mm3 MPV 10.0 (7.5-11.0) fl Segmented Neutrophils 67 H (36.0-66.0) % Band Neutrophils 10 H (0.0-2.0) % Lymphocytes (Manual) 16 L (24-44) % Monocytes (Manual) 7 (0.0-12.0) % Toxic Granulation 2+ Platelet Estimate NORMAL (NORMAL) RBC Morphology ABNORMAL Anisocytosis 1+ Sodium 139 (137-145) mmol/L Potassium 3.8 (3.5-5.1) mmol/L Chloride 109 H (98-107) mmol/L Carbon Dioxide 22 (22-30) mmol/L Anion Gap 12.7 (5-15) MEQ/L BUN 13 (7-17) mg/dL Creatinine 0.78 (0.52-1.04) mg/dL Estimated GFR > 60.0 ML/MIN Glucose 99 (74-106) mg/dL Calcium 8.7 (8.4-10.2) mg/dL - Progress Progress: unchanged Counseled pt/family regarding: lab results, diagnosis, need for follow-up - Departure Departure Disposition: Home Clinical Impression: Diarrhea, Normocytic anemia Condition: Stable Critical Care Time: No Referrals: ZACHARY JUAREZ [Primary Care Provider] - Instructions: Diarrhea in Adolescents and Adults Plan of Treatment: nontoxic in appearance. The patient's abdominal exam is relatively benign. I suspect her diarrhea is likely a combination of her gastric bypass surgery in addition to possibly developing a viral enteritis at this time. She is unable to rise with a stool sample in the emergency department. Her labs are reviewed and relatively reassuring with little signs to suggest dehydration at this time. Vital signs were within normal limits as well. She was given IV fluids and was comfortable being discharged home follow with her primary care provider for further evaluation and management. She is instructed to keep hydrated and will be provided with Bentyl to take for her abdominal cramping. her normocytic anemia is likely a result of her room She has decreased absorption of vitamin B12 and iron. Prescriptions: Dicyclomine HCl 20 mg [Bentyl 20 mg] 20 mg PO Q6HPRN PRN #20 tablet PRN Reason: Pain
[2019-09-12] MEDS ORDERED: Sodium Chloride 0.9% 1000 ML 1,000 ML IV STA (10:49)
[2019-09-12] MEDS ORDERED: Sodium Chloride 0.9% 1000 ML 1,000 ML ONE (11:31)
[2019-09-12] MEDS ORDERED: BENTYL 20 MG ONE (11:31)
[2019-09-12 11:36] LABS: Hematocrit 35.9 % (35-47); Hemoglobin 10.9 gm/dl (12.0-16.0); Mean Cell Volume 88.4 fl (78-100); Mean Corpuscular Hemoglobin 26.8 pg (26-32); Mean Corpuscular Hgb Concent. 30.4 g/dl (32-36); Platelet Count 323 K/mm3 (150-450); Red Blood Count 4.06 M/mm3 (4.1-5.4)
[2019-09-12 11:49] LABS: ANION GAP 12.7 MEQ/L (5-15); BLOOD UREA NITROGEN 13 mg/dL (7-17); CHLORIDE 109 mmol/L (98-107); Calcium 8.7 mg/dL (8.4-10.2); Carbon Dioxide 22 mmol/L (22-30); Creatinine 1 0.78 mg/dL (0.52-1.04); Glucose 99 mg/dL (74-106); Potassium 3.8 mmol/L (3.5-5.1); SODIUM 139 mmol/L (137-145)
[2019-09-12 12:25] VITALS: BP 123/70; PULSE 78; O2SAT 98
[2019-09-12] MEDS ORDERED: BENTYL 20 MG PO SCH (13:00)
[2019-09-12 13:38] LABS: ANISOCYTOSIS 1+; BAND 10 % (0.0-2.0); Lymphocytes 16 % (24-44); Monocyte 7 % (0.0-12.0); Neutrophils 67 % (36.0-66.0); Platelet Estimate NORMAL (NORMAL); Total Cells Counted 100; Toxic Granulation 2+
== END 2019-09-12 12:57 | disposition home or self-care (01) ==
LOC: ED 10:31
DX: R19.7 Diarrhea, unspecified (principal); D64.9 Anemia, unspecified
CPT/HCPCS: 36000; 36415; 80048; 85025; 96360; 96374; 99284; A9270-GY